=== PATIENT | female | born 1960 | race Caucasian/White ===

== ENCOUNTER → 2016-11-04 18:58 | Outpatient (CLI) | payer MEDICARE ==
[2009-04-07 06:42] VITALS: BMI 35.0
== END | disposition home or self-care (01) ==
LOC: D.MAMMO 16:00
DX: Z12.31 Encounter for screening mammogram for malignant neoplasm of breast (principal)

== ENCOUNTER → 2016-12-19 08:47 | Outpatient (CLI) | payer MEDICARE ==
[2009-04-07 06:42] VITALS: BMI 35.0
== END ==
LOC: D.MAMMO 08:47
DX: R92.8 Other abnormal and inconclusive findings on diagnostic imaging of breast (principal)

== ENCOUNTER → 2017-02-28 14:19 | Outpatient (CLI) | payer BC ==
[2009-04-07 06:42] VITALS: BMI 35.0
== END | disposition home or self-care (01) ==
LOC: D.MAMMO 02-20 08:00
DX: N60.02 Solitary cyst of left breast (principal)

== ENCOUNTER 2018-03-12 08:00 | Outpatient (CLI) | payer OTHER ==
[2009-04-07 06:42] VITALS: BMI 35.0
== END 2018-03-12 09:00 | disposition home or self-care (01) ==
LOC: D.MAMMO 08:00
DX: Z12.31 Encounter for screening mammogram for malignant neoplasm of breast (principal)